=== PATIENT | female | born 1980 | race Caucasian/White ===

== ENCOUNTER 2023-09-01 12:37 | Observation (INO) ==
[2023-09-01] MEDS: Albuterol HFA INHALER 8 gm MDI INH ONE (16:05)
[2023-09-01 16:35] LABS: ABS Basophils 0.1 10^3/uL (0.0-0.1); ABS Eosinophils 0.2 10^3/uL (0.0-0.5); ABS Lymphocytes 1.9 10^3/uL (1.0-4.8); ABS Neutrophils 8.8 10^3/uL (1.5-7.6); ABS Nucleated RBC 0.01 10^3/ul; Eosinophil % 1.6 %; Hematocrit 42.9 % (35-45); Mean Corpuscular Hgb Conc 34.9 g/dL (31-36); Mean Corpuscular Volume 102.9 fL (80-97); Mean Platelet Volume 8.8 fL (7.5-11.2); Nucleated Red Blood Cells % 0.1 %/100WBC (0.0-0.8); Platelet Count 261 10^3/uL (150-450); Red Blood Count 4.16 10^6/uL (3.63-4.92); Red Cell Distribution Width 16.6 % (12-17); White Blood Count 11.9 10^3/uL (3.8-11.8)
[2023-09-01 16:37] LABS: INR 1.48 (0.83-1.13)
[2023-09-01 17:05] LABS: HCG Pregnancy < 0.60 mIU/mL
[2023-09-01 17:09] LABS: ALT 90 U/L (7-52); AST 113 U/L (13-39); Albumin 3.9 g/dL (3.2-5.2); Albumin/Globulin Ratio 1.4 (1-3); Alkaline Phosphatase 99 U/L (35-149); Anion Gap 11 mmol/L (2-16); Blood Urea Nitrogen 6 mg/dL (6-24); CO2 Carbon Dioxide 32 mmol/L (22-32); Calcium 9.3 mg/dL (8.6-10.3); Chloride 95 mmol/L (101-111); Creatinine, Serum 0.78 mg/dL (0.51-0.95); Globulin 2.8 g/dL (2-4); Glucose 86 mg/dL (70-100); Potassium 3.7 mmol/L (3.5-5.0); Sodium 138 mmol/L (135-145); Total Bilirubin 0.5 mg/dL (0.2-1.0); Total Protein 6.7 g/dL (6.4-8.9); eGFR CKD-EPI 98.4 (>60)
[2023-09-01 17:11] LABS: Magnesium 1.7 mg/dL (1.9-2.7)
[2023-09-01 18:07] LABS: High Sensitivity Troponin 1 Hr 3 pg/mL (<15)
[2023-09-01] MEDS: Iohexol 350 (CONTRAST) 500 ML MDV IV ONE (22:51)
[2023-09-02] MEDS: Magnesium Sulfate IV 1GM/100ML 1 GM/100 ML BAG IV ONE (01:10)
[2023-09-02] MEDS: NS 0.9% 1000 ml BAG 1,000 ML IV ONE (01:20)
[2023-09-02 06:05] LABS: ABS Basophils 0.1 10^3/uL (0.0-0.1); ABS Eosinophils 0.2 10^3/uL (0.0-0.5); ABS Lymphocytes 1.8 10^3/uL (1.0-4.8); ABS Monocytes 0.8 10^3/uL (0.0-0.9); ABS Neutrophils 5.8 10^3/uL (1.5-7.6); Eosinophil % 1.9 %; Hematocrit 39.2 % (35-45); Hemoglobin 13.8 g/dL (11.5-14.3); Lymphocyte % 20.9 %; Mean Corpuscular Hemoglobin 36.6 pg (27-33); Mean Corpuscular Hgb Conc 35.2 g/dL (31-36); Mean Platelet Volume 8.7 fL (7.5-11.2); Nucleated Red Blood Cells % 0.1 %/100WBC (0.0-0.8); Platelet Count 215 10^3/uL (150-450); Red Blood Count 3.77 10^6/uL (3.63-4.92); Red Cell Distribution Width 16.2 % (12-17); White Blood Count 8.7 10^3/uL (3.8-11.8)
[2023-09-02 06:52] LABS: Albumin 3.4 g/dL (3.2-5.2); Albumin/Globulin Ratio 1.4 (1-3); Calcium 8.5 mg/dL (8.6-10.3); Creatinine, Serum 0.77 mg/dL (0.51-0.95); Globulin 2.5 g/dL (2-4); Potassium 3.1 mmol/L (3.5-5.0); Total Bilirubin 0.6 mg/dL (0.2-1.0); Total Protein 5.9 g/dL (6.4-8.9); eGFR CKD-EPI 99.9 (>60)
[2023-09-02] MEDS: DULoxetine DR 20 mg CAP PO SCH (08:29)
[2023-09-02] MEDS: DULoxetine DR 60 mg CAP PO SCH (08:29)
[2023-09-02] MEDS: Potassium Chlor 20 meq TAB.ER PO SCH (10:34)
[2023-09-02 13:31] LABS: TSH Ultra Thyroid Stim Horm 4.48 mcIU/mL (0.34-5.60)
[2023-09-02 13:32] LABS: Free T4 0.74 ng/dL (0.61-1.12)
[2023-09-02 14:16] VITALS: BP 147/90
[2023-09-02 15:46] LABS: Calcium 8.8 mg/dL (8.6-10.3); Creatinine, Serum 0.7 mg/dL (0.51-0.95); Magnesium 2.1 mg/dL (1.9-2.7); Potassium 3.6 mmol/L (3.5-5.0); eGFR CKD-EPI 112.1 (>60)
[2023-09-02] MEDS: Potassium Chlor 20 meq TAB.ER PO ONE (16:03)
== END 2023-09-02 16:20 | disposition home or self-care (01) ==
LOC: EDHOLD 12:37 → ED 12:37 → SUATTDRO 23:58 → MEDTELE 09-02 01:44
PROVIDERS: ADMIT Internal Medicine; ATTEND Internal Medicine

== ENCOUNTER 2024-01-16 14:29 | Inpatient (IN) ==
[2024-01-16 18:23] LABS: ABS Basophils 0.1 10^3/uL (0.0-0.1); ABS Eosinophils 0.3 10^3/uL (0.0-0.5); ABS Lymphocytes 1.5 10^3/uL (1.0-4.8); ABS Neutrophils 7.3 10^3/uL (1.5-7.6); Eosinophil % 3.4 %; Hematocrit 38.2 % (35-45); Hemoglobin 13.2 g/dL (11.5-14.3); Lymphocyte % 14.9 %; Mean Corpuscular Hemoglobin 35.3 pg (27-33); Mean Corpuscular Hgb Conc 34.6 g/dL (31-36); Mean Corpuscular Volume 102.1 fL (80-97); Mean Platelet Volume 10.3 fL (7.5-11.2); Platelet Count 233 10^3/uL (150-450); Red Blood Count 3.74 10^6/uL (3.63-4.92); Red Cell Distribution Width 15.4 % (12-17); White Blood Count 10.3 10^3/uL (3.8-11.8)
[2024-01-16 18:46] LABS: ALT 57 U/L (7-52); AST 58 U/L (13-39); Albumin 4.2 g/dL (3.2-5.2); Albumin/Globulin Ratio 1.5 (1-3); Alkaline Phosphatase 166 U/L (35-149); Anion Gap 7 mmol/L (2-16); Blood Urea Nitrogen 10 mg/dL (6-24); CO2 Carbon Dioxide 33 mmol/L (22-32); Calcium 10.3 mg/dL (8.6-10.3); Chloride 96 mmol/L (101-111); Creatine Kinase 24 U/L (10-223); Creatinine, Serum 0.63 mg/dL (0.51-0.95); Globulin 2.8 g/dL (2-4); Glucose 90 mg/dL (70-100); Sodium 136 mmol/L (135-145); Total Bilirubin 0.4 mg/dL (0.2-1.0); eGFR CKD-EPI 114.2 (>60)
[2024-01-16 18:52] LABS: HCG Pregnancy < 0.60 mIU/mL
[2024-01-16 18:57] LABS: INR 1.46 (0.83-1.13)
[2024-01-16 19:11] LABS: Folate 5.55 ng/mL (5.90-24.80)
[2024-01-16 19:12] LABS: Vitamin B12 456 pg/mL (180-914)
[2024-01-16 19:12] LABS: Vitamin D Total 25(OH) 32.2 ng/mL (20-50)
[2024-01-16 20:23] LABS: C Reactive Protein 9.87 mg/L (<8.01)
[2024-01-16] MEDS: Iohexol 350 (CONTRAST) 500 ML MDV IV ONE (20:33)
[2024-01-16] MEDS: Lidocaine 1% w EPI 1:100,000 MDV 20 ML VIAL INJ ONE (21:31)
[2024-01-17] MEDS: Prochlorperazine 5 mg/ml 2 ml VIAL (10 mg) IV ONE (03:09)
[2024-01-17] MEDS ORDERED: Ondansetron ODT 4 mg TAB 4 MG TAB PO PRN (05:04)
[2024-01-17] MEDS ORDERED: Albuterol/Ipratropium NEB.SOL (2.5/0.5 MG) 3 ML NEB.SOLN INH PRN (05:05)
[2024-01-17] MEDS ORDERED: Albuterol HFA INHALER 8 gm MDI INH PRN (06:00)
[2024-01-17 06:05] LABS: ABS Basophils 0.1 10^3/uL (0.0-0.1); ABS Eosinophils 0.3 10^3/uL (0.0-0.5); ABS Lymphocytes 1.5 10^3/uL (1.0-4.8); ABS Monocytes 0.9 10^3/uL (0.0-0.9); ABS Neutrophils 5.2 10^3/uL (1.5-7.6); ABS Nucleated RBC 0.01 10^3/ul; Eosinophil % 3.8 %; Hematocrit 35.9 % (35-45); Hemoglobin 12.1 g/dL (11.5-14.3); Lymphocyte % 19.1 %; Mean Corpuscular Hemoglobin 34.3 pg (27-33); Mean Corpuscular Hgb Conc 33.6 g/dL (31-36); Mean Corpuscular Volume 101.9 fL (80-97); Mean Platelet Volume 9.7 fL (7.5-11.2); Nucleated Red Blood Cells % 0.1 %/100WBC (0.0-0.8); Platelet Count 220 10^3/uL (150-450); Red Blood Count 3.52 10^6/uL (3.63-4.92); Red Cell Distribution Width 15.5 % (12-17)
[2024-01-17 06:56] LABS: Calcium 9.4 mg/dL (8.6-10.3); Creatinine, Serum 0.62 mg/dL (0.51-0.95); Potassium 3.9 mmol/L (3.5-5.0); eGFR CKD-EPI 114.7 (>60)
[2024-01-17] MEDS: Potassium Chlor 20 meq TAB.ER PO SCH (08:41)
[2024-01-17] MEDS: DULoxetine DR 60 mg CAP PO SCH (08:42)
[2024-01-17] MEDS: DULoxetine DR 20 mg CAP PO SCH (09:18)
[2024-01-17 16:40] LABS: TSH Ultra Thyroid Stim Horm 8.88 mcIU/mL (0.34-5.60)
[2024-01-17] MEDS ORDERED: Nystatin TOP POWDER 15 GM BTL TOPICAL PRN (18:17)
[2024-01-17] MEDS ORDERED: Enoxaparin 40 MG/0.4 ML SYR SUBCUT SCH (21:00)
[2024-01-17 21:29] LABS: T4, Total 10.45 mcg/dL (6.09-12.23)
[2024-01-18 06:35] LABS: ABS Eosinophils 0.4 10^3/uL (0.0-0.5); ABS Lymphocytes 1.4 10^3/uL (1.0-4.8); ABS Monocytes 0.8 10^3/uL (0.0-0.9); ABS Neutrophils 4.4 10^3/uL (1.5-7.6); Hematocrit 35.8 % (35-45); Hemoglobin 12.2 g/dL (11.5-14.3); Lymphocyte % 19.7 %; Mean Corpuscular Hemoglobin 34.7 pg (27-33); Mean Corpuscular Volume 102.1 fL (80-97); Mean Platelet Volume 10.1 fL (7.5-11.2); Platelet Count 206 10^3/uL (150-450); Red Blood Count 3.51 10^6/uL (3.63-4.92); Red Cell Distribution Width 15.4 % (12-17)
[2024-01-18 06:53] LABS: Albumin 3.7 g/dL (3.2-5.2); Albumin/Globulin Ratio 1.4 (1-3); Calcium 9.5 mg/dL (8.6-10.3); Creatinine, Serum 0.63 mg/dL (0.51-0.95); Globulin 2.7 g/dL (2-4); Magnesium 1.9 mg/dL (1.9-2.7); Total Bilirubin 0.4 mg/dL (0.2-1.0); Total Protein 6.4 g/dL (6.4-8.9); eGFR CKD-EPI 114.2 (>60)
[2024-01-19 07:01] LABS: ABS Eosinophils 0.3 10^3/uL (0.0-0.5); ABS Lymphocytes 1.1 10^3/uL (1.0-4.8); ABS Monocytes 0.7 10^3/uL (0.0-0.9); ABS Neutrophils 4.3 10^3/uL (1.5-7.6); ABS Nucleated RBC 0.02 10^3/ul; Eosinophil % 4.9 %; Hematocrit 37.8 % (35-45); Hemoglobin 12.7 g/dL (11.5-14.3); Lymphocyte % 17.3 %; Mean Corpuscular Hemoglobin 34.3 pg (27-33); Mean Corpuscular Hgb Conc 33.7 g/dL (31-36); Mean Corpuscular Volume 101.8 fL (80-97); Mean Platelet Volume 10.1 fL (7.5-11.2); Nucleated Red Blood Cells % 0.2 %/100WBC (0.0-0.8); Platelet Count 202 10^3/uL (150-450); Red Blood Count 3.71 10^6/uL (3.63-4.92); Red Cell Distribution Width 15.5 % (12-17); White Blood Count 6.5 10^3/uL (3.8-11.8)
[2024-01-19 07:17] LABS: Calcium 9.5 mg/dL (8.6-10.3); Creatinine, Serum 0.61 mg/dL (0.51-0.95); Magnesium 1.9 mg/dL (1.9-2.7); Phosphorus 5.6 mg/dL (2.5-5.0); Potassium 3.8 mmol/L (3.5-5.0); eGFR CKD-EPI 115.1 (>60)
[2024-01-19 11:28] LABS: Body Fluid Source Cerebral Spinal
[2024-01-19 11:43] LABS: CSF Glucose 61 mg/dL (40-70)
[2024-01-19 11:55] LABS: CSF Body Fluid WBC 2 /mcL
[2024-01-19 12:01] LABS: Body Fluid Appearance Clear; Body Fluid Color Colorless; CSF Tube # 4
[2024-01-19 13:02] LABS: Body Fluid Total Cells Counted 1
[2024-01-19 14:08] LABS: SS-A/Ro Antibody <0.2 U; SS-B/La Antibody <0.2 U
[2024-01-19 16:10] LABS: Copper, S 137 mcg/dL (77-206)
[2024-01-19 23:39] LABS: Anaplasma phagocytophilum Negative (Negative); B. miyamotoi PCR, B Negative (Negative); Babesia divergens/MO-1 Negative (Negative); Babesia ducani Negative (Negative); Ehrlichia chaffeensis Negative (Negative); Ehrlichia ewingii/canis Negative (Negative); Ehrlichia muris eauclairensis Negative (Negative)
[2024-01-20 06:08] LABS: Nicotinamide <5.0 ng/mL (5.0-48.0); Nicotinuric Acid <5.0 ng/mL
[2024-01-20 06:27] LABS: ABS Basophils 0.1 10^3/uL (0.0-0.1); ABS Eosinophils 0.3 10^3/uL (0.0-0.5); ABS Lymphocytes 1.4 10^3/uL (1.0-4.8); ABS Monocytes 0.9 10^3/uL (0.0-0.9); ABS Neutrophils 4.5 10^3/uL (1.5-7.6); Eosinophil % 4.8 %; Hematocrit 37.7 % (35-45); Hemoglobin 12.8 g/dL (11.5-14.3); Lymphocyte % 18.9 %; Mean Corpuscular Hemoglobin 34.7 pg (27-33); Mean Corpuscular Volume 102.1 fL (80-97); Mean Platelet Volume 9.4 fL (7.5-11.2); Nucleated Red Blood Cells % 0.1 %/100WBC (0.0-0.8); Platelet Count 198 10^3/uL (150-450); Red Blood Count 3.69 10^6/uL (3.63-4.92); Red Cell Distribution Width 15.5 % (12-17); White Blood Count 7.2 10^3/uL (3.8-11.8)
[2024-01-20 07:05] LABS: Calcium 9.7 mg/dL (8.6-10.3); Creatinine, Serum 0.64 mg/dL (0.51-0.95); Phosphorus 5.7 mg/dL (2.5-5.0); Potassium 4.2 mmol/L (3.5-5.0); eGFR CKD-EPI 113.8 (>60)
[2024-01-20 08:08] LABS: Vitamin E 8.9 mg/L (5.5 - 17.0)
[2024-01-20] MEDS ORDERED: Senna TAB 8.6 mg TAB PO PRN (11:28)
[2024-01-21 05:39] LABS: ABS Basophils 0.1 10^3/uL (0.0-0.1); ABS Eosinophils 0.3 10^3/uL (0.0-0.5); ABS Lymphocytes 1.7 10^3/uL (1.0-4.8); ABS Monocytes 0.9 10^3/uL (0.0-0.9); ABS Neutrophils 4.5 10^3/uL (1.5-7.6); ABS Nucleated RBC 0.01 10^3/ul; Eosinophil % 4.5 %; Hematocrit 38.3 % (35-45); Hemoglobin 12.9 g/dL (11.5-14.3); Lymphocyte % 23.2 %; Mean Corpuscular Hemoglobin 34.3 pg (27-33); Mean Corpuscular Hgb Conc 33.6 g/dL (31-36); Mean Corpuscular Volume 102.2 fL (80-97); Mean Platelet Volume 9.7 fL (7.5-11.2); Nucleated Red Blood Cells % 0.1 %/100WBC (0.0-0.8); Platelet Count 209 10^3/uL (150-450); Red Blood Count 3.75 10^6/uL (3.63-4.92); Red Cell Distribution Width 14.9 % (12-17); White Blood Count 7.5 10^3/uL (3.8-11.8)
[2024-01-21 05:56] LABS: Calcium 9.4 mg/dL (8.6-10.3); Creatinine, Serum 0.72 mg/dL (0.51-0.95); Potassium 4.2 mmol/L (3.5-5.0); eGFR CKD-EPI 107.7 (>60)
[2024-01-21 11:02] LABS: Methylmalonic Acid 0.22 nmol/mL (<=0.40)
[2024-01-22 05:50] LABS: Hematocrit 37.5 % (35-45); Hemoglobin 12.8 g/dL (11.5-14.3); Mean Corpuscular Hemoglobin 34.9 pg (27-33); Mean Corpuscular Hgb Conc 34.2 g/dL (31-36); Mean Corpuscular Volume 102.2 fL (80-97); Mean Platelet Volume 9.9 fL (7.5-11.2); Platelet Count 199 10^3/uL (150-450); Red Blood Count 3.68 10^6/uL (3.63-4.92); Red Cell Distribution Width 15.1 % (12-17); White Blood Count 8.8 10^3/uL (3.8-11.8)
[2024-01-22 06:32] LABS: Calcium 9.6 mg/dL (8.6-10.3); Creatinine, Serum 0.7 mg/dL (0.51-0.95); eGFR CKD-EPI 111.4 (>60)
[2024-01-22 14:17] VITALS: BP 127/91
[2024-01-22 16:00] LABS: CSF Oligoclonal Bands 4 bands; Oligoclonal Proteins Interpret 0 bands (<2); Serum Oligoclonal Bands 4 bands
[2024-01-22 16:08] LABS: Kappa Free Light Chain, CSF 0.0156 mg/dL (<0.1000)
[2024-01-22 16:13] LABS: Asialo GM1 IgG Antibody Negative (Negative); Asialo GM1 IgM Antibody Negative (Negative); Disialo GD1b IgG Antibody Negative (Negative); Disialo GD1b IgM Antibody Negative (Negative); Monosialo GM1 IgG Antibody Negative (Negative); Monosialo GM1 IgM Antibody Negative (Negative)
[2024-01-23 16:58] LABS: Tissue Transglutaminase IgA Ab <1.2 U/mL
[2024-01-23 23:32] LABS: Immunoglobulin A 441 mg/dL (61 - 356)
== END 2024-01-22 15:40 | disposition home or self-care (01) | DRG 951 ==
LOC: EDHOLD 14:29 → ED 14:29 → SUATTDRO 01-17 00:55 → MED 01-17 13:02
PROVIDERS: ADMIT Internal Medicine; ATTEND Student in an Organized Health Care Education/Training Program